=== PATIENT | female | born 1950 | race Two or more races ===

== ENCOUNTER 2023-04-05 11:26 | Outpatient (CLI) | payer OTHER | END 2023-04-05 11:32 | disposition home or self-care (01) | LOC: SONOGRAMA 11:26 | PROVIDERS: ATTEND Internal Medicine | DX: E04.9 Nontoxic goiter, unspecified (principal) ==

== ENCOUNTER 2023-05-21 09:25 | Outpatient (CLI) | payer OTHER | END 2023-05-21 09:29 | disposition home or self-care (01) | LOC: RAD 09:25 | PROVIDERS: ATTEND Physical Medicine & Rehabilitation Pain Medicine | DX: M47.817 Spondylosis without myelopathy or radiculopathy, lumbosacral region (principal); M25.559 Pain in unspecified hip ==

== ENCOUNTER 2023-08-19 12:32 | Outpatient (CLI) | payer OTHER | END 2023-08-19 12:39 | disposition home or self-care (01) | LOC: MAMO-SONO 12:32 | PROVIDERS: ATTEND Obstetrics & Gynecology | DX: N60.21 Fibroadenosis of right breast (principal); N60.22 Fibroadenosis of left breast; Z12.31 Encounter for screening mammogram for malignant neoplasm of breast ==

== ENCOUNTER 2023-09-13 10:52 | Outpatient (CLI) | payer OTHER | END 2023-09-13 10:55 | disposition home or self-care (01) | LOC: SONOGRAMA 10:52 | PROVIDERS: ATTEND Pathology Anatomic Pathology & Clinical Pathology | DX: D34 Benign neoplasm of thyroid gland (principal); E04.9 Nontoxic goiter, unspecified; E07.9 Disorder of thyroid, unspecified ==

== ENCOUNTER 2024-01-03 10:44 | Outpatient (CLI) | payer OTHER | END 2024-01-03 10:47 | disposition home or self-care (01) | LOC: SONOGRAMA 10:44 | PROVIDERS: ATTEND Pathology Anatomic Pathology | DX: D34 Benign neoplasm of thyroid gland (principal); E07.89 Other specified disorders of thyroid; E04.2 Nontoxic multinodular goiter ==

== ENCOUNTER 2024-10-05 14:13 | Outpatient (CLI) | payer OTHER | END 2024-10-05 14:19 | disposition home or self-care (01) | LOC: SONOGRAMA 14:13 | DX: E04.2 Nontoxic multinodular goiter (principal) ==